=== PATIENT | female | born 1985 | race American Indian/Alaskan Native ===

== ENCOUNTER 2019-03-25 22:52 | Emergency (ER) | payer OTHER ==
[2019-03-25 23:33] LABS: Basophils % (Auto) 0.2 % (0.0-1.8); Eosinophils # (Auto) 0.1 K/mm3 (0.0-0.4); Eosinophils % (Auto) 0.5 % (0.0-4.3); Lymphocytes # (Auto) 2.2 K/mm3 (1.2-5.4); Lymphocytes % (Auto) 17.3 % (13.4-35.0)
--- NOTE | 2019-03-25 23:37 | Emergency Department Report ---
ED Abdominal Pain HPI - General Chief Complaint: Abdominal Pain Stated Complaint: ABD PAIN CRAMPS DIARRHEA Time Seen by Provider: 03/25/19 23:35 Source: patient Mode of arrival: Ambulatory Limitations: No Limitations - History of Present Illness Initial Comments: 33-year-old -[place] female presents to the emergency room for abdominal cramping with nausea vomiting diarrhea 3 days. Patient reports that she just returned from [place] on Friday night. Patient reports that his diarrhea is watery and she has had a MAXIMUM TEMPERATURE of 101. She has not been able to eat in the last 3 days. Patient reports that she did take some Pepto-Bismol that was recommended by the pharmacist. MD Complaint: abdominal pain Location: diffuse Severity scale (0 -10): 7 Quality: cramping Consistency: constant Improves With: nothing Worsens With: nothing Associated Symptoms: nausea, vomiting, diarrhea Treatments Prior to Arrival: antacids - Related Data LMP Date: 03/18/19 Previous Rx's Medication Instructions Recorded Last Taken Type Ciprofloxacin HCl [Ciprofloxacin 500 mg PO Q12HR #14 tab 03/26/19 Unknown Rx TAB] Dicyclomine [Bentyl] 20 mg PO QID #20 tablet 03/26/19 Unknown Rx metroNIDAZOLE [Flagyl] 500 mg PO Q12HR #14 tab 03/26/19 Unknown Rx Allergies Allergy/AdvReac Type Severity Reaction Status Date / Time Penicillins Allergy Hives Verified 03/25/19 23:02 ED Review of Systems ROS: Stated complaint: ABD PAIN CRAMPS DIARRHEA Other details as noted in HPI Comment: All other systems reviewed and negative Gastrointestinal: abdominal pain, nausea, vomiting, diarrhea ED Past Medical Hx - Past Medical History Previous Medical History?: Yes Hx Hypertension: Yes (gestational) - Surgical History Past Surgical History?: Yes Additional Surgical History: Gastric sleeve, C-Sec X 1 - Social History Smoking Status: Never Smoker Substance Use Type: Alcohol, Marijuana - Medications Home Medications: Home Medications Medication Instructions Recorded Confirmed Last Taken Type Ciprofloxacin HCl [Ciprofloxacin 500 mg PO Q12HR #14 tab 03/26/19 Unknown Rx TAB] Dicyclomine [Bentyl] 20 mg PO QID #20 tablet 03/26/19 Unknown Rx metroNIDAZOLE [Flagyl] 500 mg PO Q12HR #14 tab 03/26/19 Unknown Rx ED Physical Exam - General Limitations: No Limitations General appearance: alert, in no apparent distress - Head Head exam: Present: atraumatic, normocephalic - Eye Eye exam: Present: normal appearance - ENT ENT exam: Present: mucous membranes moist - Neck Neck exam: Present: normal inspection - Respiratory Respiratory exam: Present: normal lung sounds bilaterally. Absent: respiratory distress - Cardiovascular Cardiovascular Exam: Present: tachycardia - GI/Abdominal GI/Abdominal exam: Present: soft, distended, tenderness - Neurological Exam Neurological exam: Present: alert, oriented X3 - Psychiatric Psychiatric exam: Present: normal affect, normal mood - Skin Skin exam: Present: warm, dry, intact, normal color. Absent: rash ED Course Vital Signs 03/25/19 03/26/19 03/26/19 23:00 00:10 02:01 Temperature 98.2 F Pulse Rate 107 H Respiratory 20 18 18 Rate Blood Pressure 143/91 Blood Pressure [Left] O2 Sat by Pulse 98 99 Oximetry 03/26/19 04:25 Temperature 98.4 F Pulse Rate 84 Respiratory 18 Rate Blood Pressure Blood Pressure 130/74 [Left] O2 Sat by Pulse 99 Oximetry - Reevaluation(s) Reevaluation #1: 03/26/19 03:35 Patient reports she feels much better after having pain medication. ED Medical Decision Making - Lab Data Result diagrams: 03/25/19 23:10 03/25/19 23:10 Laboratory Tests 03/25/19 03/25/19 03/25/19 23:10 23:10 23:19 WBC 12.7 H RBC 4.70 Hgb 14.0 Hct 40.1 MCV 85 MCH 30 MCHC 35 H RDW 14.1 Plt Count 448 H Lymph % (Auto) 17.3 Carroll % (Auto) 8.0 H Eos % (Auto) 0.5 Baso % (Auto) 0.2 Lymph # 2.2 Carroll # 1.0 H Eos # 0.1 Baso # 0.0 Seg Neutrophils % 74.0 H Seg Neutrophils # 9.4 H Sodium 139 Potassium 4.1 Chloride 99.2 Carbon Dioxide 26 Anion Gap 18 BUN 6 L Creatinine 0.6 L Estimated GFR > 60 BUN/Creatinine Ratio 10 Glucose 104 H Calcium 9.1 Total Bilirubin 0.50 AST 15 ALT 14 Alkaline Phosphatase 92 Total Protein 6.9 Albumin 3.5 L Albumin/Globulin Ratio 1.0 HCG, Qual Negative - Radiology Data Radiology results: report reviewed Patient: GONZALEZ LAINEZ MR#: [id number] : 1985 Acct:[id number] Age/Sex: 33 / F ADM Date: 03/25/19 Loc: ED Attending Dr: Ordering Physician: TESSIE AREVALO Date of Service: 03/26/19 Procedure(s): CT abdomen pelvis w con Accession Number(s): [id number] cc: TESSIE AREVALO PROCEDURE: CT ABDOMEN PELVIS W CON TECHNIQUE: Computerized axial tomography of the abdomen and pelvis was performed after the IV injection of iodinated nonionic contrast. CT DOSE LENGTH PRODUCT: mGycm HISTORY: abdominal pain COMPARISONS: None . FINDINGS: Visualized lower thorax: No significant abnormality. Liver: Normal size and attenuation. Spleen: Normal size and attenuation. Gallbladder and biliary system: Normal. Pancreas: Normal. Adrenals: Normal. Kidneys: Normal. GI tract: There has been gastric surgery. There is no bowel obstruction. There is diffuse mucosal edema and thickening of the right colon consistent with acute colitis. The appendix is normal. . Lymph nodes and mesentery: There is mesenteric adenopathy most likely related to colitis.. Vasculature: Normal.. Bladder: Normal. Reproductive organs: Normal. Peritoneum: There is no ascites or free air.. Musculoskeletal structures: No significant abnormality. IMPRESSION: There has been gastric surgery. There is no bowel obstruction. There is diffuse mucosal edema and thickening of the right colon consistent with acute colitis. The appendix is normal. . There is mesenteric adenopathy most likely related to colitis.. There is no ascites or free air. This document is electronically signed by Camilo Ferguson MD., Mar 26 2019 03:37:49 AM ET Transcribed By: CO Dictated By: CAMILO FERGUSON MD Electronically Authenticated By: CAMILO FERGUSON MD Signed Date/Time: 03/26/19339 DD/ 1 TD/TT: 03/26/19301 - Medical Decision Making 33-year-old -[place] female comes in for abdominal pain that started 4 days ago. After traveling to [place]. Patient complains of nausea vomiting and diarrhea. She reports the diarrhea is watery and constant. She reports that the abdominal pain is diffuse. Patient was given IV with normal saline and Zofran, Levsin IV morphine [address] with contrast. Patient will be diagnosis of colitis based on Flagyl and Cipro and Bentyl patient is to follow-up with her primary care provider if symptoms persist or gets worse. Critical care attestation.: If time is entered above; I have spent that time in minutes in the direct care of this critically ill patient, excluding procedure time. ED Disposition Clinical Impression: Colitis Disposition: DC-01 TO HOME OR SELFCARE Is pt being admited?: No Does the pt Need Aspirin: No Condition: Stable Instructions: Abdominal Pain (ED) Additional Instructions: Take medications as prescribed. Follow up with her primary care provider in the next 3-5 days. Prescriptions: Dicyclomine [Bentyl] 20 mg PO QID #20 tablet Ciprofloxacin HCl [Ciprofloxacin TAB] 500 mg PO Q12HR #14 tab metroNIDAZOLE [Flagyl] 500 mg PO Q12HR #14 tab Referrals: SORIN MUÑOZ MD [Primary Care Provider] - 3-5 Days Forms: Work/School Release Form(ED)
[2019-03-25 23:47] LABS: Alanine Aminotransferase 14 units/L (7-56); Albumin 3.5 g/dL (3.9-5); BUN/Creatinine Ratio 10; Blood Urea Nitrogen 6 mg/dL (7-17); Calcium 9.1 mg/dL (8.4-10.2); Hemolysis Index 3
[2019-03-26 00:10] LABS: Hematocrit 40.1 % (30.3-42.9); Mean Corpuscular HGB Conc 35 % (30-34); Mean Corpuscular Volume 85 fl (79-97); Platelet Count 448 K/mm3 (140-440); Red Cell Distribution Width 14.1 % (13.2-15.2)
[2019-03-26] MEDS ORDERED: MORPHINE IV ONE (01:06)
[2019-03-26] MEDS ORDERED: ZOFRAN IV ONE (01:06)
[2019-03-26] MEDS ORDERED: LEVSIN SL SL ONE (01:06)
[2019-03-26] MEDS ORDERED: NACL 0.9% 1000 ML 1,000 ML IV ONE (01:06)
--- NOTE | 2019-03-26 03:40 | Cat Scan Report ---
PROCEDURE: CT ABDOMEN PELVIS W CON TECHNIQUE: Computerized axial tomography of the abdomen and pelvis was performed after the IV inject ion of iodinated nonionic contrast. CT DOSE LENGTH PRODUCT: mGycm HISTORY: abdominal pain COMPARISONS: None . FINDINGS: Visualized lower thorax: No significant abnormality. Liver: Normal size and attenuation. Spleen: Normal size and attenuation. Gallbladder and biliary system: Normal. Pancreas: Normal. Adrenals: Normal. Kidneys: Normal. GI tract: There has been gastric surgery. There is no bowel obstruction. There is diffuse mucosal ed mary and thickening of the right colon consistent with acute colitis. The appendix is normal. . Lymph nodes and mesentery: There is mesenteric adenopathy most likely related to colitis.. Vasculature: Normal.. Bladder: Normal. Reproductive organs: Normal. Peritoneum: There is no ascites or free air.. Musculoskeletal structures: No significant abnormality. IMPRESSION: There has been gastric surgery. There is no bowel obstruction. There is diffuse mucosal edema and thi ckening of the right colon consistent with acute colitis. The appendix is normal. . There is mesenteric adenopathy most likely related to colitis.. There is no ascites or free air. This document is electronically signed by Camilo Mejai MD., Mar 26 2019 03:37:49 AM ET
[2019-03-26] MEDS ORDERED: LEVAQUIN PO ONE (04:05)
[2019-03-26] MEDS ORDERED: BENTYL PO ONE (04:06)
[2019-03-26 04:29] VITALS: BP 130/74
== END 2019-03-26 04:25 | disposition home or self-care (01) ==
LOC: ED 22:52
DX: K52.9 Noninfective gastroenteritis and colitis, unspecified (principal); F12.10 Cannabis abuse, uncomplicated
CPT/HCPCS: 36415; 74177; 80053; 84703; 85025; 96361; 96374; 96375; 99284; J2270; J2405; J7030; Q9967